=== PATIENT | male | born 1990 | race Caucasian/White ===

== ENCOUNTER 2018-07-23 21:25 | Emergency (ER) | payer OTHER, MEDICAID ==
[~2018-07-23] VITALS: Ht 185.4 cm; Wt 111.1 kg
[2018-07-23 21:31] VITALS: BP 166/74
[2018-07-23] MEDS ORDERED: NORCO 5-325 TA1 EAC1 PO (21:35)
[2018-07-23] MEDS ORDERED: PENICILLIN VK500 MG PO (21:35)
== END 2018-07-23 21:47 | disposition home or self-care (01) ==
LOC: M.ERS 21:25
DX: M27.63 Post-osseointegration mechanical failure of dental implant (principal); K08.89 Other specified disorders of teeth and supporting structures

== ENCOUNTER 2018-10-19 11:07 | Emergency (ER) | payer OTHER, MEDICAID ==
[~2018-10-19] VITALS: Ht 182.9 cm; Wt 83.9 kg
[~2018-10-19 11:07] MED LIST: NORCO 5-325 TA1 EAC1 PO; PENICILLIN VK500 MG PO
[2018-10-19 11:46] LABS: ABSOLUTE EOSINOPHILS 0.1 thou/uL (0.0-0.7); ABSOLUTE LYMPHOCYTES 2.2 thou/uL (0.8-5.3); ABSOLUTE MONOCYTES 1.6 thou/uL (0.0-1.2); ABSOLUTE NEUTROPHILS 5.6 thou/uL (1.6-8.1); BASOPHILS 0.5 %; EOSINOPHILS 0.6 %; HEMATOCRIT 42.5 % (42.0-52.0); LYMPHOCYTES 22.8 %; MCH 32.7 pg (26.0-34.0); MCHC 35.3 g/dL (28.0-37.0); MCV 92.7 fL (80.0-100.0); MONOCYTES 16.6 %; MPV 8.8 fl. (7.2-11.1); NUCLEATED RBCS 0 /100WBC; PLATELET COUNT* 168 thou/uL (150-400); POLYS 59.5 %; RBC 4.58 mil/uL (4.50-6.00); WBC 9.4 thou/uL (4.0-11.0)
[2018-10-19 11:59] LABS: ALBUMIN 3.9 g/dL (3.4-5.0); CALCIUM 8.9 mg/dL (8.5-10.1); POTASSIUM 3.7 mmol/L (3.5-5.1); TOTAL BILIRUBIN 0.6 mg/dL (<0.1-1.0); TOTAL PROTEIN 7.7 g/dL (6.4-8.2)
[2018-10-19] MEDS ORDERED: NORCO 5-325 TA1 EACH PO (13:06)
[2018-10-19] MEDS ORDERED: ONDANSETRON HCL4 M2 PO (13:22)
[2018-10-19 13:29] LABS: URINE BILIRUBIN NEGATIVE (Negative); URINE BLOOD 1+ (Negative); URINE CLARITY CLEAR; URINE COLOR YELLOW; URINE GLUCOSE-RANDOM NEGATIVE (Negative); URINE KETONES NEGATIVE (Negative); URINE LEUKOCYTES-REFLEX NEGATIVE (Negative); URINE NITRITE-REFLEX NEGATIVE (Negative); URINE PROTEIN TRACE (Negative); URINE SPECIFIC GRAVITY <= 1.005 (1.005-1.030); URINE UROBILINOGEN 0.2 E.U./dl (0.2-1.0)
[2018-10-19 13:37] LABS: BACTERIA-REFLEX None Seen /HPF (None Seen); CASTS None Seen /LPF (None Seen); CRYSTALS None Seen /LPF (None Seen); MUCUS None Seen strn/LPF (None Seen); SQUAMOUS NONE SEEN /LPF (0-3); URINE RBC 0-2 Rare /HPF (0-2); URINE WBC-REFLEX None Seen /HPF (0-5)
[2018-10-19 13:52] VITALS: BP 131/86
== END 2018-10-19 13:53 | disposition home or self-care (01) ==
LOC: M.ERS 11:07
PROVIDERS: Physician Assistant
DX: K52.9 Noninfective gastroenteritis and colitis, unspecified (principal); F17.200 Nicotine dependence, unspecified, uncomplicated

== ENCOUNTER 2019-10-26 18:08 | Emergency (ER) | payer OTHER ==
[~2019-10-26] VITALS: Ht 185.4 cm; Wt 99.8 kg
[~2019-10-26 18:08] MED LIST changes: +NORCO 5-325 TA1 EACH PO; +ONDANSETRON HCL4 M2 PO
[2019-10-26] MEDS ORDERED: LIDODERM1 EACH TOP (19:14)
[2019-10-26] MEDS ORDERED: TYLENOL WITH CO1 TA1 PO (19:14)
[2019-10-26] MEDS ORDERED: NAPROSYN500 MG PO (19:14)
[2019-10-26 19:24] VITALS: BP 125/66
== END 2019-10-26 19:25 | disposition home or self-care (01) ==
LOC: M.ERS 18:08
DX: S20.211A Contusion of right front wall of thorax, initial encounter (principal); F17.210 Nicotine dependence, cigarettes, uncomplicated; W22.8XXA Striking against or struck by other objects, initial encounter; Y93.89 Activity, other specified; Y92.89 Other specified places as the place of occurrence of the external cause; Y99.8 Other external cause status

== ENCOUNTER 2020-02-13 11:20 | Emergency (ER) | payer OTHER ==
[~2020-02-13] VITALS: Ht 185.4 cm; Wt 95.3 kg
[~2020-02-13 11:20] MED LIST changes: +LIDODERM1 EACH TOP; +NAPROSYN500 MG PO; +TYLENOL WITH CO1 TA1 PO
[2020-02-13] MEDS ORDERED: APAP W/CODEINE1 TA2 PO (13:26)
[2020-02-13] MEDS ORDERED: FLEXERIL PO (13:26)
[2020-02-13] MEDS ORDERED: MEDROLDOSEPACK PO (13:26)
[2020-02-13 14:00] VITALS: BP 130/70
== END 2020-02-13 14:01 | disposition home or self-care (01) ==
LOC: M.ERS 11:20
DX: M54.41 Lumbago with sciatica, right side (principal)